=== PATIENT | female | born 1965 | race Caucasian/White ===

== ENCOUNTER → 2020-09-12 | Outpatient (CLI) | payer MEDICARE, OTHER ==
[~2020-09-12] MED LIST: ALDACTONE 25MG25 MG PO; ALENDRONATE SOD70 MG PO; ASPIRIN EC81 MG PO; ATORVASTATIN CA20 MG PO; BRILINTA 90 MG90 MG PO; ELAVIL 10 MG TA10 MG PO; FERROUS SULFAT325 M2 PO; LASIX20 MG PO; LOPRESSOR 25 MG25 MG PO; NAPROSYN500 MG PO; NITROGLYCERIN0.4 MG SL; OMEPRAZOLE20 MG PO; PERCOCET 10-321 EACH PO; PRINIVIL5 MG PO; VITAMIN D250000 UNIT PO
== END ==
LOC: HEART CORB 13:59
DX: I25.10 Atherosclerotic heart disease of native coronary artery without angina pectoris (principal); I25.5 Ischemic cardiomyopathy; I08.3 Combined rheumatic disorders of mitral, aortic and tricuspid valves; R93.1 Abnormal findings on diagnostic imaging of heart and coronary circulation
CPT/HCPCS: 93306

== ENCOUNTER → 2021-06-13 | Outpatient (CLI) | payer MEDICARE, OTHER | LOC: HEART CORB 09:30 | DX: I25.10 Atherosclerotic heart disease of native coronary artery without angina pectoris (principal); R94.31 Abnormal electrocardiogram [ECG] [EKG]; R07.2 Precordial pain | CPT/HCPCS: 78452; A9502; J2785 ==